=== PATIENT | female | born 1990 | race American Indian/Alaskan Native ===

== ENCOUNTER 2017-01-25 08:41 | Observation (INO) | payer OTHER ==
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
[2017-01-25] MEDS ORDERED: BENADRYL PO PRN (19:10)
[2017-01-25] MEDS ORDERED: AMBIEN PO PRN (19:10)
[2017-01-25] MEDS ORDERED: TYLENOL PO PRN (19:10)
[2017-01-25] MEDS ORDERED: PERCOCET 5/325 PO PRN (19:10)
[2017-01-25] MEDS ORDERED: COLACE PO PRN (19:10)
[2017-01-25] MEDS ORDERED: DEEP SEA NS PRN (19:10)
[2017-01-25] MEDS ORDERED: ZOFRAN IV PRN (19:10)
[2017-01-25] MEDS ORDERED: TYLENOL PO ONE (20:00)
[2017-01-25] MEDS ORDERED: LACTATED RINGERS 1,000 ML IV SCH (20:00)
[2017-01-25 21:06] LABS: Basophils % (Auto) 0.2 % (0.0-1.8); Eosinophils % (Auto) 0.8 % (0.0-4.3); Hematocrit 32.1 % (30.3-42.9); Hemoglobin 10.9 gm/dl (10.1-14.3); Mean Corpuscular HGB Conc 34 % (30-34); Mean Corpuscular Hemoglobin 32 pg (28-32); Mean Corpuscular Volume 95 fl (79-97); Platelet Count 272 K/mm3 (140-440); Red Blood Count 3.39 M/mm3 (3.65-5.03); Red Cell Distribution Width 12.8 % (13.2-15.2); White Blood Count 9.7 K/mm3 (4.5-11.0)
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
[2017-01-26 07:58] VITALS: BP 100/54
[2017-01-26] MEDS ORDERED: PRENATAL VITAMIN PO SCH (10:00)
== END 2017-01-26 08:40 | disposition home or self-care (01) ==
LOC: ED 08:41 → LD 09:39
PROVIDERS: ADMIT Obstetrics & Gynecology; ATTEND Obstetrics & Gynecology
DX: O26.893 Other specified pregnancy related conditions, third trimester (principal); R10.9 Unspecified abdominal pain; Z3A.23 23 weeks gestation of pregnancy
CPT/HCPCS: 36415; 76805; 85025; 86850; 86900; 86901; G0378